=== PATIENT | male | born 1930 | race Caucasian/White ===

== ENCOUNTER 2016-09-21 05:10 | Emergency (ER) | payer OTHER ==
[2016-09-21 05:21] VITALS: BP 157/76
[2016-09-21] MEDS ORDERED: ROCEPHIN IM ONE (06:18)
[2016-09-21] MEDS ORDERED: SOLU-MEDROL IM ONE (06:18)
[2016-09-21] MEDS ORDERED: XYLOCAINE-MPF 1% INJ ONE (06:18)
--- NOTE | 2016-09-21 06:30 | PROVIDER DOCUMENTATION ---
HPI-EENT General - General Chief Complaint: Sinus Pain Stated Complaint: CONGESTION, SINUS, COUGH X WEEK Time Seen by Provider: 09/21/16 06:10 Source: patient Allergies/Adverse Reactions: Patient Allergies Allergy/AdvReac Type Severity Reaction Status Date / Time No Known Allergies Allergy Verified 09/21/16 05:26 Home Medications: Apixaban [Eliquis] 5 mg PO BID 09/21/16 Cholecalciferol (Vitamin D3) [Vitamin D3] 2,000 unit PO DAILY 09/21/16 Lutein 10 mg PO DAILY 09/21/16 Meloxicam 15 mg PO DAILY 09/21/16 Travoprost (Benzalkonium) [Travatan 0.004% Eye Drop] 2.5 ml OP DAILY 09/21/16 Valsartan 1 tab PO DAILY 09/21/16 - History of Present Illness-EENT General Nature of Presenting Problem: Reports sinusitis symptoms X 2-3 weeks and worsened since 2-3 days ago with copious amount of yellow drainage. Cough with postnasal drainage. Reports no F/C /N/V. H/o recurrent sinusitis in the past, but it has not been so bad. Reports mild headache. His is on chemo and he wants to make sure his infection is controlled. Denies CP/SOB. Pt has an experimental wireless pace maker and was checked 4-5 days ago. Pt has no0 CP/SOB and no concerns for his pacer. EENT Location: reports: nose Quality of Pain: reports: aching Onset/Duration: reports: other (2-3 weeks.) Timing: reports: still present Prearrival Treatment: Initiated no prearrival treatment Associated Symptoms: reports: cough, nasal congestion/drainage, sinus infection . denies: drooling, ear drainage, facial pain/swelling, fever, malaise, poor fluid intake, poor solids intake, sore throat, tooth pain Similar Symptoms Previously?: Yes Recently seen or treated by another doctor?: No - Eyes Eye Problem Symptoms: denies: eye pain, burning, itching, sensitivity to light Review of Systems - Adult - REVIEW OF SYSTEMS - ADULT Constitutional: reports: see HPI. denies: fever Eyes: reports: no symptoms reported Ears, Nose, Mouth & Throat: reports: see HPI, sinus problem, nose pain. denies : hearing loss, tinnitus, epistaxis, mouth swelling, hoarseness, throat pain, throat swelling Cardiovascular: reports: no symptoms reported Respiratory: reports: see HPI, cough. denies: hemoptysis, pleurisy, shortness of breath Gastrointestinal: reports: no symptoms reported Genitourinary: reports: no symptoms reported Musculoskeletal: reports: no symptoms reported Integumentary: reports: no symptoms reported Neurological: reports: no symptoms reported Psychiatric: reports: no symptoms reported All Other Systems: Reviewed and Negative Physical Exam- EENT - Physical Exam EENT Initial Vital Signs Reviewed: Yes General Appearance: appears well, alert, no apparent distress Eye Exam: bilateral eye: PERRL, EOMI Nasal Exam: normal inspection, sinus tenderness Throat Exam: normal mouth inspection, pharynx normal Neck: non-tender, full range of motion, supple, normal inspection Respiratory: chest non-tender, lungs clear, normal breath sounds, no pleuratic chest pain, no respiratory distress Cardiovascular: normal peripheral pulses, regular rate, rhythm, no edema, no gallop Abdominal Exam: normal bowel sounds, non tender, soft, no organomegaly Extremity: normal range of motion, non-tender, normal gait, normal inspection Neurologic: grossly normal, no motor/sensory deficits, abnormal gait. negative : facial droop, focal weakness, motor weakness, sensory deficit Psych/Mental Status: normal mood/affect, normal thought content, normal thought process, oriented x 3 Progress - PLAN OF CARE/RESULTS Progress/Plan/Lab Results: Vital Signs Temp Pulse Resp BP Pulse Ox 09/21/16 05:18 97.5 F L 78 20 157/76 98 No Known Allergies Allergy (Verified 09/21/16 05:26) Apixaban [Eliquis] 5 mg PO BID 09/21/16 Cholecalciferol (Vitamin D3) [Vitamin D3] 2,000 unit PO DAILY 09/21/16 Lutein 10 mg PO DAILY 09/21/16 Meloxicam 15 mg PO DAILY 09/21/16 Travoprost (Benzalkonium) [Travatan 0.004% Eye Drop] 2.5 ml OP DAILY 09/21/16 Valsartan 1 tab PO DAILY 09/21/16 Orders Category Date Time Status HEAD W/O CONTRAST [CT] Stat Exams 09/21/16 06:19 Taken CefTRIAXONE [Rocephin] Med 09/21/16 06:18 Discontinued 1 gm IM NOW ONE Lidocaine 1% Pf [Xylocaine-Mpf 1%] Med 09/21/16 06:18 Discontinued 5 ml INJ NOW ONE Methylprednisolone Sod Succ [Solu-Medrol] Med 09/21/16 06:18 Discontinued 125 mg IM NOW ONE - CT/MRI 1 MRI Study: Head Impression: Normal MRI Results: No sinusitis on CT scan Departure - Departure Time of Disposition Order: 06:58 DIAGNOSIS: Sinusitis Qualifiers: Sinusitis location: unspecified location Chronicity: acute Recurrence: recurrent Qualified Code(s): J01.91 - Acute recurrent sinusitis, unspecified Disposition: HOME 01 Certified Medical Emergency: Emergent Condition: Stable Additional Instructions: Follow up with regular MD in 2-3 days. Return to ER if your symptoms worsen. Prescriptions: Amoxicillin/Potassium Clav [Augmentin 875-125 Tablet] 1 each PO BID #20 tablet Fluticasone 50 Mcg Nasal Zearing [Flonase] 1 spray YEIMY DAILY #1 bottle Referrals: Víctor Murphy DO [Primary Care Provider] -
--- NOTE | 2016-09-21 13:36 | Diag Imaging Result Document ---
PROCEDURE NAME: HEAD W/O CONTRAST - 09/21/2016 CT HEAD WITHOUT CONTRAST: COMPARISON: None available. FINDINGS: There is age-appropriate diffuse brain atrophy. There is no discrete intracranial mass, mass effect, or intracranial hemorrhage. There is no evidence of acute infarct given the limited sensitivity of CT versus MRI. The surrounding soft tissues and bony structures are essentially unremarkable. The visualized paranasal sinuses are clear. IMPRESSION: Age-appropriate diffuse brain atrophy but no evidence of acute intracranial pathology.
== END 2016-09-21 07:26 | disposition home or self-care (01) ==
LOC: ED 05:10
DX: J01.91 Acute recurrent sinusitis, unspecified (principal); R09.81 Nasal congestion; R05 Cough; J34.89 Other specified disorders of nose and nasal sinuses; R51 Headache; Z79.01 Long term (current) use of anticoagulants; Z79.899 Other long term (current) drug therapy; Z95.0 Presence of cardiac pacemaker
CPT/HCPCS: 70450; 96372; J0696; J2930